=== PATIENT | female | born 1955 | race Caucasian/White ===

== ENCOUNTER 2016-09-05 06:57 | Day surgery (SDC) | payer OTHER ==
[2016-09-05] VITALS (16 sets, daily range): BP systolic 108–139; BP diastolic 61–96; PULSE 88–103; RESP 7–16; O2SAT 92–98
[~2016-09-05] VITALS: Ht 154.9 cm; Wt 36.4 kg
[~2016-09-05 06:57] MED LIST: ALBU2TAB4 PO; ASCO-294 PO; CHOL10008 PO; CYCL10TA9 PO; DILT-17 PO; GABA-502 PO; GINS100C PO; HYDR-3091 PO; IBUP200C11 PO; LEVO50TA6 PO; SERT50TA9 PO
[2016-09-05] MEDS ORDERED: Ketamine 10 mg/mL 20 mL Inj ONE (06:58)
[2016-09-05] MEDS ORDERED: HYDROmorphone 1 mg/mL Inj ONE (06:58)
[2016-09-05] MEDS ORDERED: Propofol 10,000 mCg/mL 20 mL Inj ONE (06:58)
[2016-09-05] MEDS ORDERED: Phenylephrine/NS 100 mCg/mL 10 mL Syringe IVPUSH ONE (06:58)
[2016-09-05] MEDS ORDERED: Ondansetron 2 mg/mL 2 mL Inj ONE (06:58)
[2016-09-05] MEDS ORDERED: EPHEDrine/NS 5 mg/mL 5 mL Syringe ONE (06:58)
[2016-09-05] MEDS ORDERED: fentaNYL-PF 50 mCg/mL 2 mL Inj ONE (06:58)
[2016-09-05] MEDS: Lactated Ringer's 1,000 ML IV SCH ×2 (07:07→09:36)
[2016-09-05] MEDS ORDERED: Clindamycin 900 mg/50 mL D5W Premix IV ONE (07:12)
[2016-09-05] MEDS ORDERED: Lactated Ringer's 500 ML IV PRN (08:24)
[2016-09-05] MEDS ORDERED: Lactated Ringer's 1,000 ML IV SCH (08:24)
[2016-09-05] MEDS ORDERED: Dexamethasone 4 mg/mL Inj IVPUSH PRN (08:25)
[2016-09-05] MEDS ORDERED: EPHEDrine Sulfate 50 mg/mL Inj IVPUSH PRN (08:25)
[2016-09-05] MEDS ORDERED: MetoCLOpramide 5 mg/mL 2 mL Inj IVPUSH PRN (08:25)
[2016-09-05] MEDS ORDERED: Phenylephrine 10,000 mCg/mL Inj IVPUSH PRN (08:25)
[2016-09-05] MEDS ORDERED: fentaNYL-PF 50 mCg/mL 2 mL Inj IVPUSH PRN (08:25)
[2016-09-05] MEDS ORDERED: Ondansetron 2 mg/mL 2 mL Inj IVPUSH PRN (08:25)
[2016-09-05] MEDS ORDERED: HYDROmorphone 1 mg/mL Inj IVPUSH PRN (08:25)
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
[2016-09-05] MEDS ORDERED: Lactated Ringer's 1,000 ML IV ONE (09:40)
[2016-09-05] MEDS ORDERED: oxyCODONE-Acetamin 10-325 mg Tablet PO PRN (11:45)
--- NOTE | 2016-09-05 12:48 | PCM.ANEP1 ---
Post Anesthesia PACU Phase 1 Assessment Date of Service: Sep 05, 2016 Vital Signs Vital Signs Date Time Temp Pulse Resp B/P Pulse Ox O2 Delivery O2 Flow Rate FiO2 09/05/16 12:45 103 10 121/70 94 Nasal Cannula 3 09/05/16 12:30 100 8 122/71 94 Nasal Cannula 3 09/05/16 12:15 36.3 97 8 129/85 97 Simple Mask 7 09/05/16 12:10 97 8 126/77 96 Simple Mask 7 09/05/16 12:05 98 7 127/88 96 Simple Mask 7 09/05/16 12:00 98 8 130/96 96 Simple Mask 7 09/05/16 11:55 36.6 127/84 09/05/16 07:27 36.4 92 16 139/83 98 Room Air Anesthetic Administered: GA, Regional Block Level of Alertness: Awake, talking SANON's with Equal Strength: Yes Pain: No Nausea or Vomiting: No CV Function & Hydration Stable: Yes Airway Device: Oxygen Delivery: Room Air Lungs: Clear to Auscultation, Normal Air Movement Dermatome Level: Full Sensation PACU Phase 2 Assessment Complications: No Patient Instructions Provided: Yes Krystian Mayers DO Sep 05, 2016 12:48
--- NOTE | 2016-09-05 15:08 | OP ---
[address] [address] OPERATIVE REPORT PATIENT: ROSEANN MCKENZIE : 1955 MR#: [id number] ADMIT: 09/05/2016 JOB ID: [id number] DATE OF SURGERY: 09/05/2016 PREOPERATIVE DIAGNOSIS(ES): Bilateral symptomatic macromastia. POSTOPERATIVE DIAGNOSIS(ES): Bilateral symptomatic macromastia. PROCEDURE: Bilateral breast reduction. SURGEON: Jules Omalley M.D. ASSEMBLY MACHINE TENDER: Wyatt Wakefield PA-C was present for accessory exposure, retraction and closure. ANESTHESIA: General anesthesia. COMPLICATIONS: None apparent. ESTIMATED BLOOD LOSS: 50 cc. DRAINS: Bilateral #15 round Reese drains, one on each side. SPECIMEN: Bilateral breast tissue to Pathology, right side weighing 0.85 kg, left side 0.82 kg. INDICATIONS FOR PROCEDURE: This is a 61-year-old female patient with bilateral symptomatic macromastia with back pain, painful shoulder bra strap grooving as well as inframammary rash. Her symptoms have been refractory to routine management. At this point, bilateral breast reductions are indicated for symptom relief. PROCEDURE AND FINDINGS: The patient was identified in the preoperative area. Surgical site was marked. The patient was then placed into a sitting position. The sternal notch was marked. Inframammary folds were marked. Dietrich pattern incisions were then designed with the new nipple position at 19 cm from the sternal notch. The Dietrich pattern limbs were 8 cm each in a triangular manner. The patient was then taken back to the operating room and placed supine on the operating room table. Appropriate time-outs were taken. At this time a paravertebral block was also carried out by Anesthesia smoothly. With the patient in supine position, I finished the Dietrich pattern marking. The patient was then prepped and draped in the usual sterile manner. I turned my attention to the right breast. With the nipple under slight tension, a 42 mm nipple sizer was used to lion the new nipple-areolar complex. Inferior pedicle was then designed that is 10 cm at its base and 8 cm at the inferior border of the nipple-areolar complex. Incisions were then made first around the new nipple-areolar complex and then around the inferior pedicle. Intervening skin was de-epithelialized. I then turned my attention to completing the rest of the Dietrich pattern incision with a #10 blade. The incisions were then deepened down into the subcutaneous tissue. A superior skin flap was elevated. Medially I started the flap approximately 2 cm thick. I then deepened the incision down to the chest wall while thickening the flap to approximately 3 cm. Laterally, the flap was elevated along the breast capsule. This was dissected down to the chest wall as well. I then isolated the inferior pedicle. Incision was made around the inferior pedicle with electrocautery. I then deepened the incision down to the chest wall while flaring out to capture more perforators. Medially incision was deepened down to the pectoralis major fascia. Laterally, the incision was deepened down to the deep fascia. Superiorly incision was deepened down to the posterior breast capsule which was then followed down to the pectoralis major muscle. Once this has been done, the tissue between the skin flap dissection and the pedicle dissection was elevated off of the chest wall and passed off to Pathology as a specimen. Hemostasis was obtained with electrocautery. The incisions were then temporarily stapled together. A new nipple-areolar complex keyhole was then marked with a 42 mm nipple sizer centered at 7 cm from the inframammary fold. Incision was made with a #15 blade. It was then deepened down through the skin flap with electrocautery allowed in the keyhole to be generated. The right nipple was then externalized. A #15 round Reese drain was then placed into the surgical site exiting on the lateral end of the incision. I then turned my attention to the left breast. A similar reduction was carried out. The incisions were made around the new nipple-areolar complex and inferior pedicle. Intervening skin was de-epithelialized. Superior flap was elevated in a similar manner to the right side. The inferior pedicle was then developed and isolated. Intervening soft tissue was elevated off the chest and passed off to Pathology as a specimen. Hemostasis was obtained with electrocautery. The incisions were then temporally stapled together. Again, a new nipple-areolar complex keyhole was made with a 42 mm nipple sizer. The left nipple was externalized. The patient had very similar volume and contour. A drain was placed into the left surgical site as well exiting at the lateral aspect of the inframammary incision. The incisions were then reapproximated first with a layer of 3-0 Monocryl deep dermal suture, followed by 4-0 Monocryl running subcuticular suture. At the end of this procedure, the right-sided breast specimen weighed approximately 0.85 kg while the left side weighed 0.82 kg. The patient tolerated the procedure well. Needle count, sponge count and instrument counts were correct at the end of the procedure. The patient was extubated and transported to recovery in stable condition. CHRIS
--- NOTE | 2016-09-07 18:33 | PATH ---
SURGICAL PATHOLOGY Attending Physician:Jules Omalley CASE STATUS: Signed Out PATIENT NAME: ROSEANN MCKENZIE PID: [id number] : 1955 DATE COLLECTED:09/05/2016 20:53 SPECIMEN: 1: Breast Reduction 2: Breast Reduction CLINICAL HISTORY: BILATERAL MACROMASTIA, BACK PAIN, RASH 1). RIGHT BREAST TISSUE 2). LEFT BREAST TISSUE FINAL DIAGNOSIS: 1. Right Breast Tissue, Reduction: Skin and subcutaneous tissue, negative for neoplasm. Breast parenchyma with fibrocytic change comprising of stromal fibrosis and microcysts, a small focus of apocrine metaplasia. Negative for atypical hyperplasia, in situ and invasive carcinoma. 2. Left Breast Tissue, Reduction: Skin and subcutaneous tissue, negative for neoplasm. Breast parenchyma with fibrocystic change comprising of stromal fibrosis and microcysts. Negative for atypical hyperplasia, in situ and invasive carcinoma. ICD10: N62.0 GROSS DESCRIPTION: The specimens are received in formalin, labeled with the patient's name, and sublabeled as the following: (1) right breast tissue; (2) left breast tissue. (1) The specimen consists of multiple pieces of breast tissue (869 g, 24.5 x 18.5 x 5.3 cm in aggregate) partially covered by skin (19.2 x 15.5 cm). The breast tissue is fatty with no nodules, masses or lesions identified. The skin is beasley-white and unremarkable. Section code: (1A, 1B) breast tissue, assistance representative. (2) The specimen consists of multiple pieces of breast tissue (856 g, 23.5 x 23.5 x 3.5 cm in aggregate) partially covered by skin (17.5 x 14.5 cm). The breast tissue is fatty with no nodules, masses or lesions identified. The skin is beasley-white and unremarkable. Section code: (2A, 2B) breast tissue, assistance representative. 09/06/16 ICD-9 CODES: CPT CODES: 1: 78351 2: 99315 Electronically Signed Out Bobby Varner MD [facility] [address], [place] [address] Technical component performed at [facility], [facility] [address], [place], [address]
== END 2016-09-05 23:59 | disposition home or self-care (01) ==
LOC: SAS 06:57
PROVIDERS: ATTEND Plastic Surgery
DX: N62 Hypertrophy of breast (principal); M54.6 Pain in thoracic spine; R21 Rash and other nonspecific skin eruption; I10 Essential (primary) hypertension; F41.9 Anxiety disorder, unspecified; F32.9 Major depressive disorder, single episode, unspecified; E03.9 Hypothyroidism, unspecified; E78.00 Pure hypercholesterolemia, unspecified; R06.00 Dyspnea, unspecified; Z79.51 Long term (current) use of inhaled steroids
CPT/HCPCS: 19318; J1170; J2250; J2370; J2405; J3010; J3490; J7120